=== PATIENT | female | born 1960 | race Caucasian/White ===

== ENCOUNTER 2019-10-03 05:27 | Inpatient (IN) ==
--- NOTE | 2019-10-03 06:28 | PROVIDER DOCUMENTATION ---
HPI-General Adult - General Chief Complaint: Low Blood Sugar Stated Complaint: hypoglycemia Time Seen by Provider: 10/03/19 05:49 Source: patient, EMS Allergies/Adverse Reactions: Patient Allergies Allergy/AdvReac Type Severity Reaction Status Date / Time codeine AdvReac DIZZINESS Verified 10/03/19 06:09 morphine AdvReac DIZZINESS Verified 10/03/19 06:09 Home Medications: Home Medication List Medication Instructions Recorded Confirmed Last Taken Type Duloxetine [Cymbalta] 60 mg PO DAILY 09/23/19 10/03/19 Unknown History Gabapentin 300 mg PO TID 09/23/19 10/03/19 Unknown History Tapentadol [Nucynta] 75 mg PO Q4H 09/23/19 10/03/19 Unknown History Trazodone [Desyrel] 50 mg PO QHS 09/23/19 10/03/19 Unknown History Amlodipine [Norvasc] 5 mg PO BID #120 tab 09/28/19 10/03/19 Unknown Rx Aspirin 81 mg PO DAILY chewtab 09/28/19 10/03/19 Unknown Rx Doxycycline 100 mg PO BID #10 tab 09/28/19 10/03/19 Unknown Rx Glyburide 5 mg PO DAILY #120 tab 09/28/19 10/03/19 Unknown Rx LISINOpril [Prinivil] 10 mg PO DAILY #120 tab 09/28/19 10/03/19 Unknown Rx Metformin [Glucophage] 500 mg PO BID CC #120 tab 09/28/19 10/03/19 Unknown Rx Tramadol [Ultram] 50 mg PO Q6H PRN PRN #20 tab 09/28/19 10/03/19 Unknown Rx - History of Present Illness -Gen Adult Nature of Presenting Problems: Pt is a 59 y/o female who presents with EMS with c/o low blood sugars. The EMS was called in earlier today after her found her with eyes open, breathing normally and not responding. The pt was found to have low blood sugars and treated by EMS. The pt refused to come to hospital at that time. Again around 4 am the found the pt doing the same, called the EMS and they again found the pt to have low BS and was given D50 and brought to he hospital. A sper the pt has been having low BS after her recent hospitalization about a week ago, during which her medications were modified. Pt denies any CP or SOB or fever or chills or urinary symptoms. Review of Systems - Adult - REVIEW OF SYSTEMS - ADULT Constitutional: reports: see HPI Eyes: denies: no symptoms reported Ears, Nose, Mouth & Throat: denies: no symptoms reported Cardiovascular: denies: no symptoms reported Respiratory: denies: no symptoms reported Gastrointestinal: denies: no symptoms reported Genitourinary: denies: no symptoms reported Musculoskeletal: denies: no symptoms reported Integumentary: denies: no symptoms reported Neurological: denies: no symptoms reported Psychiatric: denies: no symptoms reported Endocrine: reports: see HPI Hematologic/Lymphatic: denies: no symptoms reported Allergic/Immunologic: denies: no symptoms reported Past History - Adult - PAST MEDICAL HISTORY-ADULT Review of Records: reports: Old Records Reviewed, Nursing Assessment Review, Medications Reviewed, Social history reviewed & non-contributory. Physical Exam-General - PHYSICAL EXAM-ADULT Initial Vital Signs Reviewed: Yes - CONSTITUTIONAL General Appearance: appears well, alert, no apparent distress - EYES Eyes: PERRL/EOMI - HEAD, EARS, NOSE, MOUTH & THROAT HENMT: normocephalic/atraumatic, moist mucous membranes, TMs normal - NECK Neck: non-tender, supple - RESPIRATORY Respiratory: chest non-tender, lungs clear, normal breath sounds, no respiratory distress, no accessory muscle use - CARDIOVASCULAR Cardiovascular: regular rate, rhythm, no murmur - GASTROINTESTINAL (ABDOMEN) Abdominal Exam: non tender, soft - MUSCULOSKELETAL Back Exam: no CVA tenderness, no vertebral tenderness Extremity: non-tender, no pedal edema - SKIN Integumentary: normal color, warm/dry - NEUROLOGIC Neurologic: continuous improvement black belt II-XII nml as tested, grossly normal, no motor/sensory deficits - PSYCHIATRIC Psych/Mental Status: normal mood/affect, oriented x 3 Progress - PLAN OF CARE/RESULTS Progress/Plan/Lab Results: Vital Signs - 8 hr 10/03/19 05:50 Temperature 97.6 F Pulse Rate 88 Respiratory Rate 19 Blood Pressure 106/81 O2 Sat by Pulse Oximetry 91 L Laboratory Results - last 24 hr 10/03/19 05:38 POC Glucose 60 L Orders Category Date Time Status CHEST-1 VIEW [RAD] Stat Exams 10/03/19 05:58 Ordered CBC WITH ELECTRONIC DIFF [HEME] Stat Lab 10/03/19 05:58 Uncollected CK PROFILE [SP CHEM] Stat Lab 10/03/19 05:58 Uncollected COMPREHENSIVE METABOLIC PANEL [CHEM] Stat Lab 10/03/19 05:58 Uncollected TROPONIN T HIGH SENSITIVITY Stat Lab 10/03/19 05:58 Uncollected UA NIMS W/REFLEX CULT [URINALYSIS] Stat Lab 10/03/19 05:58 Uncollected Result Diagrams: 10/03/19 05:46 10/03/19 05:46 - REASSESSMENT Reassessment #1 Time Reassessed: 07:29 Status: unchanged (taking over care from Dr Mattson. Patient alert. Complains of indigestion) - EKG 1 Time of EKG reading by physician:: 08:21 EKG Read and Signed by:: Greg Chan EKG Interpretation (*Must complete 3 of following elements*): Abnormal Rate: 90 Rhythm: sinus [place]: normal QRS: normal ST Wave: non-specific ST changes (t wave inversion in lateral leads. Lateral ischemia) Prior EKG Comparison: changes noted - CONSULTS/PCP/HOSPITALIST Notification #1 *Consult/PCP/Hospitalist*: CHRISTOPHER El Time Discussed: 08:25 (Dr Jaquez) Consult Disposition: Will see in ED - CHANGE OF SHIFT REPORT (ED Provider) 1 Report Given and Care Transferred to:: Dr Chan Time of Transfer: 07:00 Items Pending: Labs, XRAY Results Departure - Departure Date of Disposition Decision: 10/03/19 Time of Disposition Decision: 08:23 DIAGNOSIS: Hypoglycemia due to type 2 diabetes mellitus, Abnormal EKG Disposition: ADMITTED INPATIENT 09 Certified Medical Emergency: Emergent Condition: Fair Referrals and Follow-Ups: Quan Manzanares MD [Primary Care Provider] - - Critical Care Note This patient required my direct & personal management of CC.: No Attestation - Physician/ JOAN Attestation Patient care was provided by Advanced Practice Provider:: No The physician spent face to face time with patient:: Yes Advanced Practice Provider documentation review:: Supervising physician onsite and consulted in the evaluation and care of this patient. The physician did have a face to face encounter with the patient.
[2019-10-03 07:02] LABS: AGAP 13; ALB/GLOB RATIO 1.5; ALBUMIN 3.7 g/dL (3.5-5.0); ALKALINE PHOSPHATASE 94 U/L (32-104); BUN 22 mg/dL (8-22); CALCIUM 9.5 mg/dL (8.8-10.2); CHLORIDE 101 mmol/L (98-107); CK PROFILE 113 U/L (24-173); COSMO 277; CREATININE 1.9 mg/dL (0.5-0.9); ESTIMATED GFR 27; GOT 17 U/L (10-30); GPT 11 U/L (10-36); POTASSIUM 3.7 mmol/L (3.5-5.1); SODIUM 139 mmol/L (136-145); TCO2 25 mmol/L (25-35); TOTAL BILIRUBIN < 0.15 mg/dL (0.20-1.00); TOTAL PROTEIN 6.1 g/dL (6.3-8.3)
[2019-10-03 07:29] LABS: GLUCOSE 30 mg/dL (70-104)
[2019-10-03] MEDS ORDERED: NS 1,000 ML IV ONE ×2 (07:31→15:04)
[2019-10-03 07:46] LABS: BASO# 0.02 X1000 (0.0-0.2); BASO% 0.2 % (0.0-0.8); EOS# 0.04 X1000 (0.0-0.7); EOS% 0.4 % (0.0-10.0); HEMATOCRIT 36.9 % (37.0-47.0); HEMOGLOBIN 11.1 g/dL (12.0-16.0); IMM GRAN# 0.02 X1000 (0.0-0.04); IMM GRAN% 0.2 % (0.0-0.5); LYMPH# 2.15 X1000 (1.2-3.4); LYMPH% 19.5 % (20.5-51.1); MCH 26.1 PG (27-31); MCHC 30.1 g/dL (33-37); MCV 86.6 FL (81-99); MONO# 0.92 X1000 (0.11-0.59); MONO% 8.3 % (1.7-9.3); MPV 10.1 FL (7.4-10.4); NEUT# 7.89 X1000 (1.4-6.5); NEUT% 71.4 % (42.2-75.2); PLT 443 X1000 (130-400); RBC 4.26 XMIL (4.2-5.4); RDW 15.8 % (11.5-14.5); WBC 11.04 X1000 (4.8-10.8)
--- NOTE | 2019-10-03 07:47 | Diag Imaging Result Doc PS360 ---
EXAM: CHEST-1 VIEW HISTORY: CP TECHNIQUE: Single view COMPARISON: 09/23/2019 FINDINGS: The lungs are well expanded except for atelectasis in the right costophrenic angle. The heart is mildly enlarged. The vessels are not distended. There are no infiltrates. No effusion identified. IMPRESSION: Mild cardiomegaly Electronically signed by Jim Beckwith 10/03/2019 7:44 AM
[2019-10-03] MEDS ORDERED: TYLENOL PO PRN (08:25)
[2019-10-03] MEDS ORDERED: ZOFRAN IV PRN (08:25)
[2019-10-03] MEDS ORDERED: D10W 1,000 ML IV ONE (08:30)
[2019-10-03] MEDS: NUCYNTA PO SCH ×2 (08:30→14:11)
[2019-10-03] MEDS ORDERED: PRINIVIL PO SCH (09:00)
[2019-10-03] MEDS: NORVASC PO SCH ×2 (09:00→21:07)
[2019-10-03 10:53] LABS: URINE SOURCE CATH
[2019-10-03] MEDS ORDERED: GLUCAGON SUBQ ONE (10:56)
[2019-10-03 11:06] LABS: BILIRUBIN URINE NEGATIVE (NEGATIVE); BLOOD URINE NEGATIVE (NEGATIVE); COLOR YELLOW; GLUCOSE URINE NEGATIVE (NEGATIVE); KETONE URINE NEGATIVE (NEGATIVE); LEUKOCYTES URINE MODERATE (NEGATIVE); NITRITE URINE NEGATIVE (NEGATIVE); PH URINE 5.5; PROTEIN URINE 100 mg/dL (NEGATIVE); SP GRAVITY URINE 1.017; TURBIDITY URINE HAZY (CLEAR); UROBILINOGEN URINE NORMAL (NORMAL)
[2019-10-03] MEDS ORDERED: D50W SYRINGE IV PRN (11:07)
[2019-10-03 11:23] LABS: UR EPITHELIAL CELLS >10 /HPF (<10); URINE BACTERIA NEGATIVE /HPF; URINE CASTS NONE SEEN; URINE WBC TNTC /HPF (<10)
[2019-10-03] MEDS: ASPIRIN PO SCH (11:51)
[2019-10-03] MEDS: NEURONTIN PO SCH ×3 (11:52→16:20)
[2019-10-03] MEDS: CYMBALTA PO SCH (11:52)
[2019-10-03] MEDS ORDERED: STERILE WATER INJ. INJ ONE (12:00)
[2019-10-03] MEDS: DOXYCYCLINE PO SCH ×2 (12:04→21:07)
--- NOTE | 2019-10-03 12:12 | EKG Report ---
Test Performed on : 10/03/2019 08:04:13 AM Test Reason : chest pain Blood Pressure : / mmHG Vent. Rate : 090 BPM Atrial Rate : 090 BPM P-R Int : 160 ms QRS Dur : 088 ms QT Int : 414 ms P-R-T Axes : 035 -05 121 degrees QTc Int : 506 ms Normal sinus rhythm. Possible Inferior infarct (cited on or before 23-SEP-2019) Cannot rule out Anterior infarct , age undetermined ST & T wave abnormality, consider lateral ischemia Abnormal ECG When compared with ECG of 23-SEP-2019 20:29, (Unconfirmed) T wave inversion now evident in Lateral leads Unconfirmed Result
--- NOTE | 2019-10-03 13:32 | HISTORY AND PHYSICAL ---
PRIMARY CARE PROVIDER: Dr. Manzanares. CHIEF COMPLAINT: Low blood sugar. HISTORY OF PRESENT ILLNESS: Ms Ruthie Willams is a 59-year-old female with a medical history of diabetes mellitus for at least 4 years, CKD stage III, depression, neuropathy, chronic pain, was most recently treated here for left 5th toe osteomyelitis and MRSA and amputation of the left 5th toe. She also had Klebsiella UTI and is still on doxycycline at home. She is supposed to follow up with Dr. Rico on Saturday. However, the last 2 days, essentially yesterday and today, she has had low blood glucose levels that ranged anywhere from lowest of 36 to the highest of 70 despite eating several things. They did call an ambulance and they gave her dextrose, it came back up and she was not brought to the hospital, but then it kept dropping back down again and this morning she was very lethargic, difficult to arouse, and she was brought back to the hospital and still with hypoglycemia. She has not had her metformin since Saturday, so no metformin for 3 days and no glyburide for 2 days and she has complained that she has had confusion for the last 2 weeks as well, so we will put her on a dextrose drip and continue checking her blood glucose levels. PAST MEDICAL HISTORY: 1. Diabetes mellitus type 2 for at least 4 years. 2. CKD stage III. 3. Depression. 4. Diabetic peripheral neuropathy. 5. Chronic pain syndrome. 6. GERD. 7. Arthritis. 8. Recent treatment for Barb intertrigo. 9. Recent treatment for Klebsiella UTI. 10. Recent treatment for osteomyelitis with MRSA of the left 5th toe, status post amputation. PAST SURGICAL HISTORY: 1. Left 5th toe amputation by Dr. Rico. 2. Used to get epidurals every 3 months, that stopped around 8 years ago. Otherwise, no other surgical history. SOCIAL HISTORY: Denies tobacco, alcohol or illicit drug use. FAMILY HISTORY: Denies. ALLERGIES: Codeine and morphine. HOME MEDICATIONS: 1. Trazodone 50 mg p.o. nightly. 2. Cymbalta 60 mg p.o. daily. 3. Neurontin 300 mg p.o. t.i.d. 4. Nucynta 75 mg p.o. every 4 hours. 5. Aspirin 81 mg p.o. daily. 6. Doxycycline 100 mg p.o. twice daily it looks like for 5 days, which really today would be last day for that, but we will continue it. 7. Metformin 500 mg p.o. twice daily. 8. Glyburide 5 mg p.o. daily. 9. Norvasc 5 mg p.o. twice daily. 10. Lisinopril 10 mg p.o. daily. 11. Ultram 50 mg p.o. every 6 hours p.r.n. REVIEW OF SYSTEMS: Fourteen point review of systems are complete and all are negative for those mentioned in above HPI. PHYSICAL EXAMINATION: VITAL SIGNS: Temperature 97.6 degrees, heart rate 89, respiratory rate 23, blood pressure 105/71, O2 saturation 2 L nasal cannula with a saturation of 98%. GENERAL: Ms. Ruthie Willams is a 59-year-old female. She is alert, able answer questions appropriately. HEENT: Atraumatic, normocephalic. Pupils equal, round, reactive to light. Extraocular movements intact. Mucous membranes are dry. NECK: Trachea midline. CARDIOVASCULAR: S1, S2. Regular rate and rhythm. No rubs, gallops, murmurs. No lower extremity edema. +2 dorsalis and radial pulses. Negative for JVD or carotid bruits. PULMONARY: Coarse throughout. No expiratory wheezes. No accessory muscle use or work of breathing noted. She is tolerating 2 L nasal cannula. GASTROINTESTINAL: Soft, nontender, nondistended. Positive bowel sounds x4. EXTREMITIES: Moves all extremities equally. Decreased range of motion. NEUROLOGIC: Alert and oriented x3. Follows commands. Sensory is intact but decreased in the lower extremities. SKIN: Warm, dry, intact. Left 5th toe incision is dry and intact without purulent drainage, well- approximated, new dressing applied. LABORATORY DATA: White blood cells 11,000, hemoglobin 11, hematocrit 36, platelet count 443,000. Sodium 139, potassium 3.7, BUN 22, creatinine is 1.9, glucose was 30 on presentation in the serum levels, then it was 60s, then down to 44, it is back up to 56. Calcium 9.5. Bilirubin is less than 0.15, AST 17, ALT 11. CK 145, troponin originally was 112, is down to 96. Albumin 3.7. Urinalysis pending. Serum lactate 1.8. IMAGING: Chest x-ray, mild cardiomegaly. ASSESSMENT AND PLAN: 1. Symptomatic hypoglycemia in a patient that has diabetes mellitus type 2 with oral metformin and glyburide. It remained up despite receiving dextrose yesterday and constantly eating high glucose, high carb meals, so today we will put her on a D10 drip at 100 mL an hour. We may have to do p.r.n. 50% dextrose push order to keep her blood glucose levels. We will do q.4 hours blood glucose level checks unless p.r.n. have to be given or if she has change in mental status. 2. Recent Methicillin-resistant Staphylococcus aureus with left 5th toe amputation and osteomyelitis. Was followed by Dr. Rico. She is to follow up with him on Saturday in the office. If it does not look like she can get out by tomorrow, we will probably need to consult them. The incision looks good, clean and dry. Today is probably the last day of the doxycycline, I went ahead and continued it. 3. Recent treatment of Klebsiella urinary tract infection. We are going to follow up with a urinalysis. 4. Breath sounds are coarse. She does have cardiomegaly on her chest x-ray but no obvious pneumonia. No fever, no chills. She is not coughing up any colors, but it just sounds like it needs to be a little more productive than what it is. We have added a little bit of p.r.n. oxygen and nebulizers for now. 5. Chronic pain syndrome. She has the p.r.n. Ultram and her scheduled Nucynta. 6. Mild acute kidney injury on chronic kidney disease stage III. Creatinine this morning it is 1.9, and it looks like baseline is 1.1 to 1.5, BUN is normal at 22. 7. Troponinemia. Denies chest pain. It is downtrending. On presentation it was 112, is down to 96. CKs are negative. 8. Depression. Continue home medications. 9. Gastroesophageal reflux disease. 10. Deep venous thrombosis prophylaxis. Lovenox. Dictated by CHRISTOPHER El for Tejas Jaquez MD cc: CHRISTOPHER El MD
[2019-10-03] MEDS: D10W 1,000 ML IV SCH ×2 (13:40→21:05)
--- NOTE | 2019-10-03 14:20 | HISTORY AND PHYSICAL ---
ADDENDUM TO HISTORY AND PHYSICAL: I have seen and examined Ms. Ms Willams today. HISTORY OF PRESENT ILLNESS: Ms Willams is a 59-year-old female who was recently discharged from the hospital on 09/29/2019 after she underwent a left 5th toe ray amputation with Dr. Rico. She said she has been doing well. She had just been having some GERD symptoms related with her metformin, so she was not taking that, but that her blood glucose continues to be low and she has been kind of foggy in her mentation. Upon coming to the emergency room, she was found to be extremely hypoglycemic. HOME MEDICATIONS: Include metformin and glyburide. PHYSICAL EXAMINATION: For the most part is unremarkable except that she looks slightly dry. She also has a dressing over the left foot. ASSESSMENT: 1. Altered mental status secondary to hypoglycemia (metabolic encephalopathy). 2. Sulfonylurea induced hypoglycemia. 1. Acute on chronic renal failure. We will continue with the IV fluids. 2. Recently diagnosed osteomyelitis of the 5th toe, status post ray amputation. 3. Multiple psychotropic medications at home. 4. Premorbid condition: Ms. Willams is limited to wheelchair mobility. She is most time bed bound. PLAN: 1. Will continue with the D10 since patient continues to be hypoglycemic. We will also give her 1 time shot of glucagon and put her on can Sandostatin (octreotide for 24 hours). 2. Please refer to the details of the history and physical that has been dictated by the SUPERVISOR [employer] in the chart. 3. I have also discussed my plan and my findings with Ms Willams and the was at the bedside at the time of the encounter. cc: Tejas Jaquez MD
[2019-10-03 14:43] LABS: INR 0.94; PROTIME 12.7 Seconds (11.0-16.0)
[2019-10-03 14:44] LABS: PTT 25.6 Seconds (22.3-41.8)
[2019-10-03] MEDS: SANDOSTATIN 500 MICROGM in D5W 100 ML IV SCH ×3 (16:16→22:41)
[2019-10-03] MEDS: DUONEB (A & A) INH SCH ×2 (16:42→22:58)
[2019-10-03] MEDS: DESYREL PO SCH (21:09)
[2019-10-03] MEDS ORDERED: D5 1/2 NS + KCL 20 MEQ 1,000 ML IV SCH (22:15)
[2019-10-04] MEDS: DUONEB (A & A) INH SCH ×4 (04:00→22:04)
[2019-10-04] MEDS ORDERED: 1/2 NS + KCL 20 MEQ 1,000 ML IV SCH (06:30)
[2019-10-04] MEDS: HUMULIN R SUBQ SCH ×4 (07:28→21:10)
[2019-10-04 07:42] LABS: AGAP 14; ALBUMIN 2.7 g/dL (3.5-5.0); ALKALINE PHOSPHATASE 76 U/L (32-104); BUN 28 mg/dL (8-22); CALCIUM 7.8 mg/dL (8.8-10.2); CHLORIDE 97 mmol/L (98-107); COSMO 281; CREATININE 2.5 mg/dL (0.5-0.9); ESTIMATED GFR 20; GLUCOSE 322 mg/dL (70-104); GOT 15 U/L (10-30); GPT 10 U/L (10-36); MAGNESIUM 1.5 mg/dL (1.5-2.7); POTASSIUM 4.2 mmol/L (3.5-5.1); SODIUM 131 mmol/L (136-145); TCO2 20 mmol/L (25-35); TOTAL BILIRUBIN < 0.15 mg/dL (0.20-1.00); TOTAL PROTEIN 5.3 g/dL (6.3-8.3)
[2019-10-04 08:17] LABS: BASO# 0.03 X1000 (0.0-0.2); BASO% 0.4 % (0.0-0.8); EOS# 0.08 X1000 (0.0-0.7); HEMATOCRIT 29.2 % (37.0-47.0); HEMOGLOBIN 8.4 g/dL (12.0-16.0); IMM GRAN# 0.02 X1000 (0.0-0.04); IMM GRAN% 0.2 % (0.0-0.5); LYMPH# 2.84 X1000 (1.2-3.4); LYMPH% 35.3 % (20.5-51.1); MCH 25.4 PG (27-31); MCHC 28.8 g/dL (33-37); MCV 88.2 FL (81-99); MONO# 0.74 X1000 (0.11-0.59); MONO% 9.2 % (1.7-9.3); MPV 9.8 FL (7.4-10.4); NEUT# 4.33 X1000 (1.4-6.5); NEUT% 53.9 % (42.2-75.2); PLT 353 X1000 (130-400); RBC 3.31 XMIL (4.2-5.4); WBC 8.04 X1000 (4.8-10.8)
[2019-10-04] MEDS: ASPIRIN PO SCH (09:12)
[2019-10-04] MEDS: CYMBALTA PO SCH (09:12)
[2019-10-04] MEDS: NEURONTIN PO SCH ×3 (09:12→16:45)
[2019-10-04] MEDS: DOXYCYCLINE PO SCH ×2 (09:12→21:12)
[2019-10-04] MEDS: NORVASC PO SCH (09:13)
[2019-10-04] MEDS: NS 1,000 ML IV SCH ×2 (09:14→21:09)
--- NOTE | 2019-10-04 10:55 | Diag Imaging Result Doc PS360 ---
EXAM: US RENAL 2 (RETROPER) COMPLETE - 10/04/2019 HISTORY: job/arf TECHNIQUE: Bilateral renal ultrasound COMPARISON: None. FINDINGS: The right kidney measures 8.2 x 4 x 4.3 cm in size. The left kidney measures 9.6 x 4.4 x 4.6 cm in size. There is no renal mass, stone, or hydronephrosis identified. Images of the urinary bladder show no discrete lesion. The urinary bladder volume is 435 mL. IMPRESSION: No discrete renal abnormality. Electronically signed by Arnie Gallegos 10/04/2019 10:53 AM
--- NOTE | 2019-10-04 11:09 | PROGRESS NOTE ---
DATE: 10/04/2019 SUBJECTIVE: I have seen and examined Ms. Willams today. Ms. Willams refers to be doing well. Denies any new complaints. The family was concerned about blood pressure going up and down. She was on amlodipine, 1 dose was given to her last night at 2100. She was also on Sandostatin, which was discontinued, both of which could potentially bring down her blood pressure. OBJECTIVE: Current Vital Signs: Blood pressure is 100/66, pulse of 91, respirations are 18, temperature is 99.8 degrees. General Examination: Ms. Willams is a 59-year-old, female. She is in bed. No distress. HEENT: Mucosa is pink and moist. Anicteric. Acyanotic. Neck: Supple. Chest: Good air entry bilaterally. There were no crepitations, no rhonchi. Cardiovascular: Regular rate and rhythm. No murmurs, no rubs, no gallops. GI: Abdomen is soft. Extremities: No pedal edema. There is a recent surgical incision on the left 5th metatarsal region where the toe was amputated. It looks pretty clean. MOBILE NURSE: The patient is awake, alert, and oriented. Laboratory Data: WBC is 8.04, hemoglobin is 8.4, platelet count of 352,000. Chemistry is also reviewed. Creatinine is up to 2.5. Glucose has normalized. ASSESSMENT: 1. Altered mental status on presentation secondary to metabolic encephalopathy, improved. 2. Sulfonylurea-induced hypoglycemia, resolved. Patient is actually now running elevated glucose so we have started her on sliding scale. 3. Newly diagnosed osteomyelitis of the 5th toe, status post ray amputation. The patient was also placed on doxycycline. 4. Multiple psychotropic medications at home. Patient has been advised and counseled on side effects. 5. Hypertension. Patient ran a couple episodes of hypotension which we think was medication- related. Antihypertensive medications have been withheld. We will continue to monitor this throughout the day. 6. Acute on chronic kidney failure. Creatinine has gone up to 2.5 this morning. We are going to do renal studies including an ultrasound of the kidneys to rule out any obstructive uropathy. We have discontinued the lisinopril. cc: MD JOJO Fagan
[2019-10-04] MEDS: ULTRAM PO PRN ×2 (16:45→21:12)
[2019-10-04 21:07] LABS: UR CREAT RANDOM 102.9 mg/dL (11-20)
[2019-10-04] MEDS: DESYREL PO SCH (21:12)
[2019-10-05] MEDS: DUONEB (A & A) INH SCH ×2 (03:44→12:03)
[2019-10-05] MEDS ORDERED: CORTROSYN IV ONE (06:00)
[2019-10-05] MEDS: ULTRAM PO PRN (06:00)
[2019-10-05] MEDS: HUMULIN R SUBQ SCH ×2 (06:03→11:55)
[2019-10-05 06:08] LABS: BASO# 0.05 X1000 (0.0-0.2); BASO% 0.6 % (0.0-0.8); EOS# 0.17 X1000 (0.0-0.7); EOS% 2.1 % (0.0-10.0); HEMATOCRIT 29.8 % (37.0-47.0); HEMOGLOBIN 8.7 g/dL (12.0-16.0); IMM GRAN# 0.02 X1000 (0.0-0.04); IMM GRAN% 0.2 % (0.0-0.5); LYMPH# 3.24 X1000 (1.2-3.4); LYMPH% 39.8 % (20.5-51.1); MCH 25.9 PG (27-31); MCHC 29.2 g/dL (33-37); MCV 88.7 FL (81-99); MONO# 0.59 X1000 (0.11-0.59); MONO% 7.2 % (1.7-9.3); MPV 9.3 FL (7.4-10.4); NEUT# 4.08 X1000 (1.4-6.5); NEUT% 50.1 % (42.2-75.2); PLT 360 X1000 (130-400); RBC 3.36 XMIL (4.2-5.4); RDW 16.2 % (11.5-14.5); WBC 8.15 X1000 (4.8-10.8)
[2019-10-05 06:25] LABS: ALB/GLOB RATIO 1.2; ALBUMIN 3.1 g/dL (3.5-5.0); CALCIUM 8.6 mg/dL (8.8-10.2); CREATININE 1.8 mg/dL (0.5-0.9); MAGNESIUM 1.6 mg/dL (1.5-2.7); POTASSIUM 4.3 mmol/L (3.5-5.1); TOTAL BILIRUBIN 0.16 mg/dL (0.20-1.00); TOTAL PROTEIN 5.6 g/dL (6.3-8.3)
[2019-10-05] MEDS: NEURONTIN PO SCH ×2 (08:04→13:58)
[2019-10-05] MEDS: DOXYCYCLINE PO SCH (08:04)
[2019-10-05] MEDS: ASPIRIN PO SCH (08:04)
[2019-10-05] MEDS: CYMBALTA PO SCH (08:04)
[2019-10-05 08:35] LABS: LYMPHS 40 % (21-51); MONO 4 % (1-9); SEGS 56 % (42-75)
[2019-10-05 11:54] VITALS: BP 139/69
[2019-10-05] MEDS: NS 1,000 ML IV SCH (11:56)
--- NOTE | 2019-10-05 12:53 | GENERAL SURGERY PROGRESS NOTE ---
DATE: 10/05/2019 SUBJECTIVE: The patient feels better. She was admitted over the weekend for hypoglycemia. Her foot has had occasional pain but otherwise doing well. OBJECTIVE: Her left foot was examined. The bandage was removed. There is no erythema or swelling. There is no drainage. Incision is intact. ASSESSMENT AND PLAN: A 59-year-old female, postoperative day 7, left 5th toe amputation. We will clean the wound and rebandage it. I will reschedule her appointment with me for 1 week from now. cc: Chadd Rico MD
[2019-10-05] MEDS ORDERED: HYDROGEN PEROXIDE SOLUTION TOP ONE (13:26)
--- NOTE | 2019-10-06 11:32 | DISCHARGE SUMMARY ---
ADMISSION DATE: 10/03/2019 DISCHARGE DATE: 10/05/2019 DISPOSITION: Home FOLLOWUP: 1. Dr. Manzanares. 2. Dr. Rico. CONSULTATION DURING THIS ADMISSION: Surgery was consulted. Patient was seen by Dr. Rico. INVASIVE PROCEDURES DONE DURING THIS ADMISSION: None. IMAGING STUDIES OF SIGNIFICANCE: 1. Chest x-ray did show mild cardiomegaly. 2. Renal ultrasound showed no discrete renal abnormality. ADMISSION DIAGNOSIS: 1. Symptomatic hypoglycemia. 2. Recent Methicillin sensitive Staphylococcus aureus foot osteomyelitis with ray amputation. DIAGNOSIS AT THE TIME OF DISCHARGE: 1. Altered mental status on presentation secondary to metabolic encephalopathy from hypoglycemia. 2. Sulfonylurea induced hypoglycemia. 3. Recently diagnosed Methicillin sensitive Staphylococcus aureus osteomyelitis of the 5th toe, status post ray amputation. 4. Multiple psychotropic medication use at home. 5. Hypertension. 6. Acute on chronic renal failure. 7. Hypotension secondary to medication side effects. DISCHARGE MEDICATIONS: 1. Trazodone 50 mg p.o. at bedtime. 2. Nucynta 75 mg p.o. q. 4. 3. Doxycycline 100 mg b.i.d. 1. Amlodipine 5 mg b.i.d. 2. Aspirin 81 mg B daily. 3. Glyburide 2.5 p.o. daily. 4. Gabapentin 100 mg 3 times per day. 5. Jardiance 10 mg p.o. daily. MEDICATION THAT HAS BEEN DISCONTINUED: Lisinopril, metformin because of renal impairment. Glyburide has been reduced because of renal impairment and some hypoglycemic tendencies. Duloxetine was withheld. PRESENTING COMPLAINT: Low blood sugar. HISTORY OF PRESENTING COMPLAINT: Ms Willams is a 59-year-old female who presented to the emergency department because of low blood sugar. Ms Willams has just recently been discharged from the hospital after a left 5th toe amputation. I understand she went back to her regular pain and psychotropic medications, was found slightly altered and was brought into the emergency room where she was found to be remarkably hypoglycemic. She was on glyburide and metformin. We think it was a sulfonylurea induced hypoglycemia. She was admitted for further medical course. HOSPITAL COURSE: Ms Willams blood cultures and urine cultures all came back negative. Her creatinine had gone up to 2.5 during the hospital course. All nephrotoxins were withheld. This morning he is back to 1.8 which seems to be her baseline. The blood pressure got improved, some of her blood pressure medications were withheld. This morning she refers to feel a whole lot better. No new complaints. Of note Ms. Willams premorbid status is that she is bed bound and family have to help her to move for transfers and she uses wheelchair for mobility. We think she is back to her baseline. We have addressed the need to revisit with her primary care doctor about all her psychotropic medications which we think compounded her clinical picture. I will also reduce her glyburide and have added Jardiance. All the discharge instructions have been discussed with her and she voiced understanding. TIME SPENT FOR DISCHARGE: 38 minutes. cc: Tejas Jaquez MD
== END 2019-10-05 14:43 | disposition home or self-care (01) | DRG 637 ==
LOC: SUPCPDRO → ED 05:27 → EDIPHOLD 05:27 → OBSVTOIN 08:31 → 3N 11:07
PROVIDERS: ATTEND Internal Medicine